=== PATIENT | male | born 1930 | race African-American/Black ===

== ENCOUNTER 2018-02-07 15:23 | Observation (INO) | payer OTHER ==
[2018-02-07 16:10] LABS: BASOPHILS # (AUTO) 0.1 X10^3/uL (0.0-0.1); BASOPHILS % (AUTO) 0.8 % (0.2-1.0); EOSINOPHILS # (AUTO) 0.2 x10^3/uL (0.0-0.2); HEMATOCRIT 38.1 % (42.0-54.0); HEMOGLOBIN 12.6 g/dL (13.5-18.0); LYMPHOCYTES # (AUTO) 1.6 X10^3/uL (1.3-2.9); LYMPHOCYTES % (AUTO) 10.4 % (21.0-51.0); MEAN CORPUSCULAR HEMOGLOBIN 22.6 pg (27.0-34.0); MEAN CORPUSCULAR VOLUME 68.4 fL (80.0-100.0); MONOCYTES # (AUTO) 0.7 x10^3/uL (0.3-0.8); MONOCYTES % (AUTO) 4.5 % (0.0-13.0); NEUTROPHILS % (AUTO) 83.3 % (42.0-75.0); PLATELET COUNT 418 X10^3/uL (150.0-450.0); RED BLOOD COUNT 5.57 X10^6/uL (4.7-6.0); RED CELL DISTRIBUTION WIDTH 19.9 % (11.6-16.5); WHITE BLOOD COUNT 15.6 X10^3/uL (3.6-10.0)
--- NOTE | 2018-02-07 16:20 | DR.GENAD ---
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 On routine home health visit today nurse thought patient had more drainage from site than usual. Her visits are twice weekly. Chief Complaint:: pt stated he had lung surgery on 01/25/18 and this morning the site had been bleeding and he has been having low 02 sat at home per home visiting nurse - Source History Provided: Patient, Family Member - Mode of Arrival Mode of Arrival: Ambulatory - Timing Onset of Chief Complaint: 02/06/18 PMH - PMH Past Medical History: Yes Past Medical History: Anxiety, Diabetes, GERD, Hypertension Past Surgical History: Yes Surgical History: Appendectomy, Ortho Surgery Past Surgical History Comment: hernia - Family History History of Family Medical Conditions: No - Social History Does patient currently use any type of tobacco product: No Have you used tobacco products in the last 12 months: No Type of Tobacco Use: None Does any household member use tobacco: No Alcohol Use: None Do you use any recreational Drugs:: No Lives With: Family Lives Where: Home - infectious screening In the last 2 months have you had wt loss of >10#?: NO Have you had fever, night sweats or hemotysis?: No Have you traveled outside the country in the last 6 months?: No Isolation: Standard ROS - Review of Systems Eyes: No Symptoms Reported ENTM: No Symptoms Reported Respiratoy: No Symptoms Reported Cardiovascular: No Symptoms Reported Gastrointestinal/Abdominal: No Symptoms Reported Genitourinary: No Symptoms Reported Neurological: No Symptoms Reported Musculoskeletal: No Symptoms Reported Integumentary: No Symptoms Reported Hematologic/Lymphatic: No Symptoms Reported Endocrine: No Symptoms Reported Psychiatric: No Symptoms Reported All Other Systems: Reviewed and Negative PE - Vital Signs Vitals: Temperature 97.7 F Pulse Rate 95 Respiratory Rate 16 Blood Pressure 112/56 O2 Sat by Pulse Oximetry 97 - General Limitations: No Limitations General Appearance: Alert, In No Apparent Distress - Head Head Exam: Normal Inspection, Atraumatic - Eyes Eye exam: Normal Appearance, PERRL, EOMI - ENT ENT Exam: Normal Exam External Ear Exam: Normal External Inspection TM/Canal Exam: Bilateral Normal Nose Exam: Normal Nose Exam Mouth Exam: Normal Inspection Throat Exam: Normal Inspection - Neck Neck Exam: Normal Inspection - Chest Chest Inspection: Normal Inspection, Symmetric Chest Wall Rise - Respiratory Respiratory Exam: Normal Lung Sounds Bilat Respiratory Exam: Bilateral Clear to Auscultation - Cardiovascular Cardiovascular Exam: Regular Rate, Normal Rhythm - Abdominal Exam Abdominal Exam: Normal Inspection, Normal Bowel Sounds Abdominal Tenderness: negative: RUQ, RLQ, LUQ, LLQ, Epigastrium, Suprapubic, Diffuse, Mild, Moderate, Severe, Other - Extremities Extremities Exam: Normal Inspection, Full ROM - Back Back Exam: Normal Inspection, Full ROM - Neurologic Neurological Exam: Alert, Oriented X3, CN II-XII Intact - Psychiatric Psychiatric Exam: Normal Affect, Normal Mood - Skin Skin Exam: Warm, Dry, Intact Course - Reevaluation 1st: Unchanged - Consultation Called: 19:35 (Dr Souza agreed to admit for rehydration) - Education/Counseling Educated On: Treatment, Diagnosis ROR - Labs Reviewed Result Diagrams: 02/07/18 16:02 02/07/18 16:02 Laboratory: WBC 15.6 X10^3/uL (3.6-10.0) H 02/07/18 16:02 RBC 5.57 X10^6/uL (4.7-6.0) 02/07/18 16:02 Hgb 12.6 g/dL (13.5-18.0) L 02/07/18 16:02 Hct 38.1 % (42.0-54.0) L 02/07/18 16:02 MCV 68.4 fL (80.0-100.0) L 02/07/18 16:02 MCH 22.6 pg (27.0-34.0) L 02/07/18 16:02 MCHC 33.0 g/dL (33.0-35.0) 02/07/18 16:02 RDW 19.9 % (11.6-16.5) H 02/07/18 16:02 Plt Count 418 X10^3/uL (150.0-450.0) 02/07/18 16:02 Plt Count Comment Adequate (ADEQUATE) 02/07/18 16:02 MPV 8.0 fL (7.4-11.0) 02/07/18 16:02 Neut % (Auto) 83.3 % (42.0-75.0) H 02/07/18 16:02 Lymph % (Auto) 10.4 % (21.0-51.0) L 02/07/18 16:02 [place] % (Auto) 4.5 % (0.0-13.0) 02/07/18 16:02 Eos % (Auto) 1.0 % (0.9-2.9) 02/07/18 16:02 Baso % (Auto) 0.8 % (0.2-1.0) 02/07/18 16:02 Neut # (Auto) 13.0 x10^3/uL (2.2-4.8) H 02/07/18 16:02 Lymph # (Auto) 1.6 X10^3/uL (1.3-2.9) 02/07/18 16:02 [place] # (Auto) 0.7 x10^3/uL (0.3-0.8) 02/07/18 16:02 Eos # (Auto) 0.2 x10^3/uL (0.0-0.2) 02/07/18 16:02 Baso # (Auto) 0.1 X10^3/uL (0.0-0.1) 02/07/18 16:02 Absolute Nucleated RBC 0.1 /100WBC 02/07/18 16:02 Plt Morphology Comment Normal (NORMAL) 02/07/18 16:02 RBC Morphology Abnormal (NORMAL) 02/07/18 16:02 Hypochromasia 1+ A 02/07/18 16:02 Anisocytosis 1+ A 02/07/18 16:02 Microcytosis 1+ A 02/07/18 16:02 Sodium 133 mmol/L (136-145) L 02/07/18 16:02 Corrected Sodium TNP 02/07/18 16:02 Potassium 4.5 mmol/L (3.5-5.1) 02/07/18 16:02 Chloride 99 mmol/L (98-107) 02/07/18 16:02 Carbon Dioxide 26.0 mmol/L (21-32) 02/07/18 16:02 BUN 46 mg/dL (7-18) H 02/07/18 16:02 Creatinine 1.63 mg/dL (0.70-1.30) H 02/07/18 16:02 Est GFR (MDRD) Af Amer 52 (>60) L 02/07/18 16:02 Est GFR (MDRD) Non-Af 43 (>60) L 02/07/18 16:02 Glucose 107 mg/dL (65-99) H 02/07/18 16:02 Calcium 8.3 mg/dL (8.5-10.1) L 02/07/18 16:02 Corrected Calcium 9.1 mg/dL (8.5-10.1) 02/07/18 16:02 Total Bilirubin 1.00 mg/dL (0.2-1.0) 02/07/18 16:02 AST 26 Units/L (15-37) 02/07/18 16:02 ALT 27 Units/L (12-78) 02/07/18 16:02 Alkaline Phosphatase 66 Units/L (46-116) 02/07/18 16:02 C-Reactive Protein 145.50 mg/L (0-3.0) H 02/07/18 16:02 Total Protein 8.0 g/dL (6.4-8.2) 02/07/18 16:02 Albumin 3.0 g/dL (3.4-5.0) L 02/07/18 16:02 Globulin 5.0 g/dL (2.5-4.5) H 02/07/18 16:02 Albumin/Globulin Ratio 0.6 Ratio (1.1-2.1) L 02/07/18 16:02 Specimen Type Clean catch urine 02/07/18 17:07 Urine Color Yellow (YELLOW) 02/07/18 17:07 Urine Appearance Clear (CLEAR) 02/07/18 17:07 Urine pH 5.0 (5.0 - 8.0) 02/07/18 17:07 Ur Specific [place] 1.010 (1.000-1.030) 02/07/18 17:07 Urine Protein Negative (NEGATIVE) 02/07/18 17:07 Urine Glucose (UA) Negative (NEGATIVE) 02/07/18 17:07 Urine Ketones Negative (NEGATIVE) 02/07/18 17:07 Urine Occult Blood Negative (NEGATIVE) 02/07/18 17:07 Urine Nitrite Negative (NEGATIVE) 02/07/18 17:07 Urine Bilirubin Negative (NEGATIVE) 02/07/18 17:07 Urine Urobilinogen Normal (NORMAL) 02/07/18 17:07 Ur Leukocyte Esterase Negative (NEGATIVE) 02/07/18 17:07 - XRAY XRAY Interpreted by: Radiologist (Chest: The trachea is midline. The cardiac silhouette is unremarkable. Chronic [id number] changes. Surgical clips are seen overlying the right anterior chest. No obvious focal consolidation, opleural effusion, or pneumothorax. The bony thorax is unremarkable. Impression: No acute cardiopulmonary disease.) - Diagnosis Discharge Problem: Prerenal azotemia, Hyponatremia - Discharge Plan Condition: Stable - Follow ups/Referrals Follow ups/Referrals: Deanne Benedict [Primary Care Provider] - 3 days - Instructions
[2018-02-07 16:22] LABS: ALANINE AMINOTRANSFERASE 27 Units/L (12-78); ALKALINE PHOSPHATASE 66 Units/L (46-116); ASPARTATE AMINO TRANSFERASE 26 Units/L (15-37); BLOOD UREA NITROGEN 46 mg/dL (7-18); CALCIUM 8.3 mg/dL (8.5-10.1); CHLORIDE 99 mmol/L (98-107); COR CA(FOR HYPOALB) 9.1 mg/dL (8.5-10.1); CREATININE 1.63 mg/dL (0.70-1.30); SODIUM 133 mmol/L (136-145); eGFR BLACK RACES 52 (>60); eGFR NON BLACK RACES 43 (>60)
[2018-02-07 16:34] LABS: ANISOCYTOSIS 1+; HYPOCHROMASIA 1+; MICROCYTOSIS 1+; PLATELET MORPHOLOGY COMMENT NORMAL (NORMAL)
[2018-02-07 17:18] LABS: BILIRUBIN,URINE NEGATIVE (NEGATIVE); BLOOD/HEMOGLOBIN,URINE NEGATIVE (NEGATIVE); GLUCOSE, URINE NEGATIVE (NEGATIVE); KETONES,URINE NEGATIVE (NEGATIVE); LEUKOCYTE ESTERASE ,URINE NEGATIVE (NEGATIVE); NITRITES,URINE NEGATIVE (NEGATIVE); PROTEIN,URINE NEGATIVE (NEGATIVE); UROBILINOGEN,URINE NORMAL (NORMAL)
[2018-02-07 17:19] LABS: APPEARANCE,URINE CLEAR (CLEAR); COLOR,URINE YELLOW (YELLOW)
--- NOTE | 2018-02-07 18:23 | RAD ---
HISTORY: Status post right lower lobe surgery on January 25, 2018. Patient bleeding from surgical site. Study: Portable chest. Comparison: None. Findings: The trachea is midline. The cardiac silhouette is unremarkable. Chronic emphysematous changes. Surgi rik clips are seen overlying the right anterior chest. No obvious focal consolidation, pleural effusi on, or pneumothorax. The bony thorax is unremarkable. IMPRESSION: No acute cardiopulmonary disease. Reported By:
[2018-02-07] MEDS ORDERED: NS 1000 ML 1,000 ML ONE (19:36)
[2018-02-07] MEDS ORDERED: MORPHINE SULFATE INJ 2 MG INJ IVP PRN (19:51)
[2018-02-07] MEDS: NS 1000 ML 1,000 ML IV SCH (20:38)
[2018-02-07 21:49] VITALS: BMI 22.8
[2018-02-07] MEDS ORDERED: D50W ABBOJECT SYR IV PRN (22:37)
[2018-02-08] MEDS: NS 1000 ML 1,000 ML IV SCH ×2 (05:33→09:37)
[2018-02-08 06:10] LABS: BASOPHILS # (AUTO) 0.1 X10^3/uL (0.0-0.1); BASOPHILS % (AUTO) 0.6 % (0.2-1.0); EOSINOPHILS # (AUTO) 0.2 x10^3/uL (0.0-0.2); EOSINOPHILS % (AUTO) 1.2 % (0.9-2.9); HEMATOCRIT 33.8 % (42.0-54.0); HEMOGLOBIN 11.1 g/dL (13.5-18.0); LYMPHOCYTES # (AUTO) 1.9 X10^3/uL (1.3-2.9); LYMPHOCYTES % (AUTO) 12.1 % (21.0-51.0); MEAN CORPUSCULAR HEMOGLOBIN 22.5 pg (27.0-34.0); MEAN CORPUSCULAR HGB CONC 32.9 g/dL (33.0-35.0); MEAN CORPUSCULAR VOLUME 68.4 fL (80.0-100.0); MEAN PLATELET VOLUME 8.1 fL (7.4-11.0); MONOCYTES # (AUTO) 1.1 x10^3/uL (0.3-0.8); NEUTROPHILS # (AUTO) 12.7 x10^3/uL (2.2-4.8); NEUTROPHILS % (AUTO) 79.1 % (42.0-75.0); PLATELET COUNT 388 X10^3/uL (150.0-450.0); RED BLOOD COUNT 4.94 X10^6/uL (4.7-6.0); RED CELL DISTRIBUTION WIDTH 19.5 % (11.6-16.5); WHITE BLOOD COUNT 16.1 X10^3/uL (3.6-10.0)
[2018-02-08 06:25] LABS: ALANINE AMINOTRANSFERASE 22 Units/L (12-78); ALBUMIN 2.5 g/dL (3.4-5.0); ALKALINE PHOSPHATASE 57 Units/L (46-116); ASPARTATE AMINO TRANSFERASE 25 Units/L (15-37); BLOOD UREA NITROGEN 33 mg/dL (7-18); CALCIUM 7.8 mg/dL (8.5-10.1); CARBON DIOXIDE 21.4 mmol/L (21-32); CHLORIDE 100 mmol/L (98-107); CREATININE 1.27 mg/dL (0.70-1.30); SODIUM 132 mmol/L (136-145); TOTAL PROTEIN 6.6 g/dL (6.4-8.2); eGFR BLACK RACES > 60 (>60); eGFR NON BLACK RACES 57 (>60)
[2018-02-08 06:54] LABS: HYPOCHROMASIA 1+; MICROCYTOSIS 1+; PLATELET MORPHOLOGY COMMENT NORMAL (NORMAL)
[2018-02-08 12:35] VITALS: BP 121/60
--- NOTE | 2018-02-13 21:33 | DR.CARTERS ---
Short Stay Summary - Short Stay Summary for: Short Stay Summary for Date of:: 02/07/18 - Admission Date Date of Admission: 02/07/18 - Discharge Date Discharge Date: 02/08/18 - Admission Diagnoses (1) Bronchopneumonia Status: Acute (2) Hyponatremia Status: Acute (3) Prerenal azotemia Status: Acute - Hospital Course Hospital Course: is a 87 year old patient of Faye Lilly. He presented to the emergency room with reports of a bleeding from recent surgical site. Patient reports he underwent surgery on 01/25/18 for removal of right lower lobe adenocarcinoma. Patient was reportedly sent home from [facility] in [place] on 01/30/18 with a drain and home health nurses. Patient was seen by home health nurse today who noted increased drainage in drainage bag. Patient reports pain to right side of chest which he rates as a 7/10. He also reports shortness of breath and a non-productive cough. On arrival, vitals were 97.7, 95, 16, 97% 2L NC, 112/56. Labs were obtained. Abnormal Labs include the following: WBC 15.6, Hgb 12.6, Hct 38.1, MCV 68.4, MCH 22.6, RDW 19.9, Sodium 133, BUN 46, Creatinine 1.63, GFR af 52, GFR non 43, Glucose 107, 103, Calcium 8.3, CRP 145.50, Albumin 3.0, Globulin 5.0, A/G Ratio 0.6. Chest X-Ray revealed : No acute cardiopulmonary disease. Patient admitted to the hospital as observation for further evaluation and treatment. Patient started on IV fluids at 80ml/hr for rehydration and to improve renal function. Will follow up with labs in the morning and continue to monitor On morning rounds, patient is alert and oriented, lying in bed. He reports shortness of breath and cough, but denies any other complaints. Dressing noted to abdomen where drain was. His vitals this morning are 98.7-106-20-95%-124/58. Abnormal lab values include the following: wbc 16.1, hgb 11.1, hct 33.8, sodium 132, bun 33, glucose 105, calcium 7.8, albumin 2.5. We discussed with patient the possible development of pneumonia after surgery. We planned for discharge. Discharge medications and instructions were given to patient and spouse. They verbalized understanding. Patient was discharged home on Levaquin 500mg po daily x 10 days and megace 40mg po bid for decreased appetite. He was instructed to follow up with Dr.Rhonda Kc on 02/09/18. Patient discharged home with family in stable condition. - Discharge Medications Discharge Medications: Aspirin EC [ASPIRIN EC 81 MG *] 81 mg PO DAILY 02/07/18 [History] Atorvastatin Calcium [LIPITOR Tab 40 mg *] 1 tab PO DAILY 02/07/18 [History] Losartan/Hydrochlorothiazide [Losartan-Hctz 100-12.5 mg Tab] 1 each PO DAILY [History] Metformin HCl [Glucophage] 500 mg PO BID 02/07/18 [History] Metoprolol Tartrate 25 mg PO BID 02/07/18 [History] Montelukast Sodium 10 mg PO HS 02/07/18 [History] Nortriptyline HCl [Pamelor] 25 mg PO DAILY 02/07/18 [History] Tramadol HCl 50 mg PO Q6HR 02/07/18 [History] Levofloxacin [LEVAQUIN TAB 500 MG *] 500 mg PO DAILY #10 tab 02/08/18 [Rx] Megestrol Acetate [Megace] 40 mg PO BID #60 tab 02/08/18 [Rx] - Discharge Plan Disposition: HOME HEALTH SERVICE Condition: Stable Prescriptions: Levofloxacin [LEVAQUIN TAB 500 MG *] 500 mg PO DAILY #10 tab Megestrol Acetate [Megace] 40 mg PO BID #60 tab - Follow up/Referrals Follow up/Referrals: [facility] [Other] Faye Lilly [Primary Care Provider] - 02/09/18 9:05 am - Instructions Instructions: Type 2 Diabetes Mellitus, Diagnosis, Adult, Hyponatremia, Easy-to -Read, Chronic Obstructive Pulmonary Disease, [id number], Hypertension, Easy- to-Read Additional Instructions: DIET TOLERATED. ACTIVITY TOLERATED. Forms: Patient Portal
== END 2018-02-08 13:10 | disposition home health service (06) ==
LOC: ER 15:49 → OBS 19:46
PROVIDERS: ADMIT Internal Medicine; ATTEND Internal Medicine
DX: E87.1 Hypo-osmolality and hyponatremia (principal); R79.89 Other specified abnormal findings of blood chemistry; F41.8 Other specified anxiety disorders; E11.65 Type 2 diabetes mellitus with hyperglycemia; K21.9 Gastro-esophageal reflux disease without esophagitis; I10 Essential (primary) hypertension; J90 Pleural effusion, not elsewhere classified; D72.828 Other elevated white blood cell count; R94.4 Abnormal results of kidney function studies; R79.82 Elevated C-reactive protein (CRP); Z85.118 Personal history of other malignant neoplasm of bronchus and lung
CPT/HCPCS: 36415; 71045; 80053; 81003; 82947; 85025; 86140; 94760; 96365; 99284; A4216; A4222; G0378